=== PATIENT | female | born 1965 | race Caucasian/White ===

== ENCOUNTER 2020-07-18 18:34 | Emergency (ER) | payer OTHER ==
[~2020-07-18] VITALS: Ht 157.5 cm; Wt 87.1 kg
[2020-07-18] MEDS ORDERED: LYRICA150 MG PO (19:04)
[2020-07-18] MEDS ORDERED: LYRICA300 MG PO (19:05)
[2020-07-18] MEDS ORDERED: FENOFIBRATE200 MG PO (19:07)
[2020-07-18] MEDS ORDERED: CARVEDILOL25 MG PO (19:07)
[2020-07-18] MEDS ORDERED: DULOXETINE HCL60 MG PO (19:08)
[2020-07-18] MEDS ORDERED: METFORMIN HCL500 M3 PO (19:09)
[2020-07-18] MEDS ORDERED: LEVO-T25 MCG PO (19:10)
[2020-07-18] MEDS ORDERED: OLMESARTAN-HCT1 EAC2 PO (19:11)
[2020-07-18] MEDS ORDERED: CELEBREX 200 M200 MG PO (19:12)
[2020-07-18] MEDS ORDERED: OZEMPIC0.25 MG/0. SUBQ (19:19)
[2020-07-18 19:22] LABS: ABSOLUTE BASOPHILS 0.1 thou/uL (0.0-0.2); ABSOLUTE EOSINOPHILS 0.1 thou/uL (0.0-0.7); ABSOLUTE MONOCYTES 0.5 thou/uL (0.0-1.2); ABSOLUTE NEUTROPHILS 5.7 thou/uL (1.6-8.1); BASOPHILS 1.1 %; EOSINOPHILS 1.4 %; LYMPHOCYTES 24.2 %; MCH 31.4 pg (26.0-34.0); MCV 92.4 fL (80.0-100.0); MONOCYTES 6.4 %; MPV 7.3 fl. (7.2-11.1); NUCLEATED RBCS 0 /100WBC; PLATELET COUNT* 363 thou/uL (150-400); POLYS 66.9 %; RBC 4.76 mil/uL (4.20-5.00); RDW-CV 13.8 % (10.5-14.5); WBC 8.5 thou/uL (4.0-11.0)
[2020-07-18 19:33] LABS: CALCIUM 8.7 mg/dL (8.5-10.1); CREATININE 1.1 mg/dL (0.6-1.3); POTASSIUM 4.4 mmol/L (3.5-5.1)
[2020-07-18 19:35] LABS: APTT 22.5 Seconds (25.0-31.3); PROTIME 10.3 Seconds (9.20-11.50)
[2020-07-18 19:38] LABS: ALBUMIN 3.3 g/dL (3.4-5.0); TOTAL BILIRUBIN 0.3 mg/dL (<0.1-1.0); TOTAL PROTEIN 6.8 g/dL (6.4-8.2)
[2020-07-18 21:14] VITALS: BP 90/53
--- NOTE | 2020-07-19 14:16 | EKG ---
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
== END 2020-07-18 21:15 | disposition home or self-care (01) ==
LOC: M.ERS 18:34
PROVIDERS: Family Medicine
DX: R55 Syncope and collapse (principal); E11.9 Type 2 diabetes mellitus without complications; I10 Essential (primary) hypertension; E03.9 Hypothyroidism, unspecified; F17.210 Nicotine dependence, cigarettes, uncomplicated